=== PATIENT | female | born 1970 ===

== ENCOUNTER 2017-08-21 16:15 | Emergency (ER) | payer MEDICAID ==
[2017-08-21 16:31] VITALS: BP 108/74; PULSE 80; RESP 18; TEMP 98.2; O2SAT 99
== END 2017-08-21 16:54 | disposition left against medical advice (07) ==
LOC: ED 16:15
DX: Z02.89 Encounter for other administrative examinations (principal); J11.1 Influenza due to unidentified influenza virus with other respiratory manifestations